=== PATIENT | male | born 1970 | race Caucasian/White ===

== ENCOUNTER 2020-06-28 19:23 | Emergency (ER) | payer OTHER ==
[~2020-06-28] VITALS: Ht 162.6 cm; Wt 99.8 kg
[2020-06-28 19:31] VITALS: BP 132/76
[2020-06-28] MEDS ORDERED: MULTIVITAMIN-12 10 ML, THIAMINE 100 MG, MAGNESIUM SULFATE 50% 2,000 MG, FOLIC ACID 1 MG... IV SCH ×5 (19:50)
[2020-06-28] MEDS ORDERED: FOLIC ACID 1 MG TAB ONE (20:01)
[2020-06-28] MEDS ORDERED: THIAMINE 200 MG/2 ML VIAL ONE (20:01)
[2020-06-28] MEDS ORDERED: MAG SULF 2000 MG/WATER PREMIX 50 ML IV ONE (20:01)
[2020-06-28] MEDS ORDERED: MULTIVITAMIN-12 10 ML VIAL IV ONE (20:02)
[2020-06-28 20:14] LABS: BASOPHILS % (AUTO) 0.3 % (0.0-2.0); EOSINOPHILS # (AUTO) 0.2 K/uL (0-0.4); EOSINOPHILS % (AUTO) 2.6 % (0.0-4.0); HEMATOCRIT 44.6 % (36-52); HEMOGLOBIN 14.8 g/dL (12.0-18.0); LYMPHOCYTES # (AUTO) 1.7 K/uL (2.0-11.5); LYMPHOCYTES % (AUTO) 19.7 % (20.5-51.1); MEAN CORPUSCULAR HEMOGLOBIN 30 pg (27-31); MEAN CORPUSCULAR HGB CONC 33 g/dL (33-37); MEAN CORPUSCULAR VOLUME 90.1 fL (80-94); MONOCYTES # (AUTO) 0.8 K/uL (0.8-1.0); MONOCYTES % (AUTO) 9.4 % (1.7-9.3); PLATELET COUNT (AUTO) 238 K/uL (140-450); RED BLOOD CELL COUNT(AUTO) 4.96 MIL/uL (4.20-6.10); RED CELL DISTRIBUTION WIDTH 12.5 % (11.6-13.7); WHITE BLOOD COUNT (AUTO) 8.9 K/uL (4.8-10.8)
[2020-06-28 20:28] LABS: ANION GAP 17.9 (8-16); CARBON DIOXIDE 23.1 mmol/L (21-32); CREATININE 0.9 mg/dL (0.6-1.3); TOTAL BILIRUBIN 0.4 mg/dL (0.0-1.0)
[2020-06-28] MEDS ORDERED: NACL 0.9% 1,000 ML IV ONE (23:35)
[2020-06-29 03:46] VITALS: BP 132/76
== END 2020-06-29 03:45 | disposition home or self-care (01) ==
LOC: MED 19:23
DX: F10.129 Alcohol abuse with intoxication, unspecified (principal); I10 Essential (primary) hypertension
CPT/HCPCS: 36415; 80053; 85025; 93005; 96361; 96365; 99284; A9153; G0482; J3411; J3475; J7030

== ENCOUNTER 2022-03-04 21:59 | Emergency (ER) | payer OTHER ==
[~2022-03-04] VITALS: Ht 170.2 cm; Wt 117.9 kg
--- NOTE | 2022-03-04 22:00 | NUR ---
TORI CHP TAKEN TO CHAIR C
[2022-03-04 22:01] VITALS: BP 106/84
--- NOTE | 2022-03-04 23:03 | NUR ---
PATIENT BIB [facility]ICE DEPT. PATIENT EXAMINED BY DR. MEADE. PATIENT MEDICALLY CLEARED AND RELEASED IN CUSTODY IN STABLE CONDITION. ORIGINAL PRE-BOOK FORM GIVEN TO OFFICER GUSTAVO, #[id number].
== END 2022-03-04 23:03 ==
LOC: MED 21:59
DX: F10.10 Alcohol abuse, uncomplicated (principal); I10 Essential (primary) hypertension; E66.9 Obesity, unspecified; Z68.41 Body mass index [BMI] 40.0-44.9, adult; Z02.89 Encounter for other administrative examinations; V49.9XXA Car occupant (driver) (passenger) injured in unspecified traffic accident, initial encounter; Y93.89 Activity, other specified; Y92.89 Other specified places as the place of occurrence of the external cause; Y99.8 Other external cause status
CPT/HCPCS: 99283